=== PATIENT | female | born 1935 | race Two or more races ===

== ENCOUNTER 2022-03-24 11:34 | Emergency (ER) | payer OTHER ==
[~2022-03-24] VITALS: Ht 160 cm; Wt 72.6 kg
[2022-03-24] MEDS ORDERED: ATORVASTATIN CA10 MG (11:56)
[2022-03-24] MEDS ORDERED: COZAAR25 MG (11:57)
[2022-03-24] MEDS ORDERED: ALENDRONATE SODI5 MG (11:57)
[2022-03-24] MEDS ORDERED: GLUMETZA500 MG (11:57)
[2022-03-24] MEDS ORDERED: VERAPAMIL ER100 MG (11:57)
[2022-03-24] MEDS ORDERED: ECOTRIN81 MG (11:57)
== END 2022-03-24 16:57 | disposition home or self-care (01) ==
LOC: ER 11:34
DX: J40 Bronchitis, not specified as acute or chronic (principal); E86.0 Dehydration; Z20.822 Contact with and (suspected) exposure to COVID-19